=== PATIENT | male | born 1970 | race Caucasian/White ===

== ENCOUNTER 2018-05-08 12:16 | Day surgery (SDC) | payer OTHER ==
[~2018-05-08 12:16] MED LIST: CIPRO 400 MG/200 ML D5W IVPB; EPHEDrine SULFATE 50 MG/5 ML SYG
[2018-05-08] MEDS ORDERED: FENTAnyl 50 MCG/ML VIAL ×2 (14:29→15:46)
[2018-05-08] MEDS ORDERED: CEFAZOLIN 1 GM INJ (14:29)
[2018-05-08] MEDS ORDERED: ONDANSETRON 4 MG INJ (14:29)
[2018-05-08] MEDS ORDERED: GLYCOPYRROLATE 0.4 MG INJ (14:29)
[2018-05-08] MEDS ORDERED: NEOSTIGMINE 3 MG/3 ML SYRINGE (14:29)
[2018-05-08] MEDS ORDERED: MIDAZOLAM 1 MG/ML 2 ML INJ (14:29)
[2018-05-08] MEDS ORDERED: PROPOFOL 20 ML (14:29)
[2018-05-08] MEDS ORDERED: ROCURONIUM 50 MG INJ (14:29)
[2018-05-08] MEDS ORDERED: DEXAMETHASONE 4 MG/ML 1 ML INJ (14:29)
[2018-05-08] MEDS ORDERED: SOD CHLORIDE 0.9% 1,000 ML IV (14:48)
[2018-05-08] MEDS ORDERED: OXYCODONE/ACETAMINOPHEN (5/325) TAB PO ×2 (15:00)
[2018-05-08] MEDS ORDERED: ONDANSETRON 4 MG INJ IV (15:00)
[2018-05-08] MEDS ORDERED: morphine 2 MG INJ IV (15:00)
[2018-05-08] MEDS: ROPIVACAINE 0.5 % 30 ML VIAL (16:33)
[2018-05-08] MEDS: POVIDONE IODINE 10% 28.4 GM OINT (16:33)
[2018-05-08] MEDS ORDERED: SUGAMMADEX SODIUM 200 MG/2 ML VIAL IV (16:55)
== END 2018-05-08 18:45 | disposition home or self-care (01) ==
LOC: SDS 12:16
DX: S83.232A Complex tear of medial meniscus, current injury, left knee, initial encounter (principal); S83.282A Other tear of lateral meniscus, current injury, left knee, initial encounter; X58.XXXA Exposure to other specified factors, initial encounter; M94.262 Chondromalacia, left knee; M65.862 Other synovitis and tenosynovitis, left lower leg; F17.200 Nicotine dependence, unspecified, uncomplicated
CPT/HCPCS: 29880